=== PATIENT | male | born 1990 | race Two or more races ===

== ENCOUNTER 2022-01-31 23:24 | Emergency (ER) | payer SELFPAY | END 2022-02-01 00:49 | disposition left against medical advice (07) | LOC: ER 23:24 | DX: T14.90XA Injury, unspecified, initial encounter (principal); Z53.21 Procedure and treatment not carried out due to patient leaving prior to being seen by health care provider; Y04.8XXA Assault by other bodily force, initial encounter; Y93.89 Activity, other specified; Y92.89 Other specified places as the place of occurrence of the external cause; Y99.8 Other external cause status ==

== ENCOUNTER 2022-02-21 21:51 | Emergency (ER) | payer SELFPAY ==
[~2022-02-21] VITALS: Ht 172.7 cm; Wt 86.5 kg
[2022-02-21 22:43] VITALS: BP 155/89
[2022-02-21] MEDS ORDERED: SODIUM CHLORIDE 0.9% 1,000 ML IV ONE (23:00)
[2022-02-21 23:52] LABS: Basophils # (auto) 0 10 ^3/uL (0-0.2); Basophils % (auto) 0.7 % (0.0-2.0); Eosinophils # (auto) 0 10 ^3/uL (0-0.8); Eosinophils % (auto) 0.5 % (0.0-7.0); Hemoglobin 15.4 g/dL (13.5-17.5); Lymphocytes # (auto) 0.9 10 ^3/uL (0.4-5.4); Lymphocytes % (auto) 24.4 % (10.0-50.0); Mean Corpuscular Hemoglobin 30.6 pg (28.0-32.0); Mean Corpuscular Hgb Conc. 33.4 g/dL (32.0-36.0); Mean Corpuscular Volume 91.8 fL (80.0-100.0); Monocytes # (auto) 0.5 10 ^3/uL (0-1.3); Monocytes % (auto) 13.6 % (0.0-12.0); Neutrophils # (auto) 2.3 10 ^3/uL (1.6-8.6); Neutrophils % (auto) 60.8 % (37.0-80.0); Nucleated Red Blood Cells % 0.1 %; Red Blood Cells 5.02 10^6/uL (4.5-5.90); Red Cell Distribution Width 15.1 % (11.8-14.3); White Blood Cell 3.8 10^3/uL (4.4-10.8)
[2022-02-22 00:15] LABS: Albumin 4.3 g/dL (3.4-5.0); BUN/Creatinine Ratio 14.8; Calcium 8.5 mg/dL (8.5-10.1); Magnesium 2.3 mg/dL (1.6-2.6); Potassium 3.9 mmol/L (3.5-5.1)
[2022-02-22 00:18] LABS: Bilirubin, Total 0.5 mg/dL (0.2-1.0); Lactic Acid w/Reflex 3.8 mmol/L (0.4-2.0); Total Protein 8.3 g/dL (6.4-8.2)
[2022-02-22 00:44] LABS: Blood Alcohol 406.1 mg/dL (0-5)
[2022-02-22] MEDS ORDERED: ONDANSETRON ODT 4 MG TAB PO ONE (02:30)
[2022-02-22] MEDS ORDERED: THIAMINE HCL 100 MG TAB PO ONE (02:30)
[2022-02-22] MEDS ORDERED: MAGNESIUM OXIDE 400 MG TAB PO ONE (02:30)
[2022-02-22 02:46] LABS: Urine WBC None Seen /hpf (0 - 3)
[2022-02-22 02:57] LABS: Urine Bacteria NONE SEEN /hpf (None Seen); Urine Blood 1+ /uL (Negative); Urine Specific Gravity 1.013 (1.001-1.035)
[2022-02-22 03:06] LABS: Amphetamine Screen, Urine NEGATIVE (NEGATIVE); Barbiturate Scree,Urine NEGATIVE (NEGATIVE); Benzodiazephine Screen, Urine NEGATIVE (NEGATIVE); Cannabinoid Screen, Urine NEGATIVE (NEGATIVE); Cocaine Screen, Urine NEGATIVE (NEGATIVE); Opiate Scree,Urine NEGATIVE (NEGATIVE); Phencyclidine Screen, Urine NEGATIVE (NEGATIVE)
== END 2022-02-22 05:55 | disposition left against medical advice (07) ==
LOC: ER 21:53
DX: E86.0 Dehydration (principal); F10.10 Alcohol abuse, uncomplicated; R94.5 Abnormal results of liver function studies; Z53.29 Procedure and treatment not carried out because of patient's decision for other reasons
CPT/HCPCS: 36415; 74176; 80053; 80307; 80320; 81001; 82962; 83605; 83735; 85025

== ENCOUNTER 2022-04-07 13:48 | Inpatient (IN) | payer MEDICAID ==
[~2022-04-07] VITALS: Ht 167.6 cm; Wt 70.0 kg
[2022-04-07 14:14] VITALS: BP 127/79
[2022-04-07] MEDS ORDERED: THIAMINE 100mg/ml INJ (200mg/2ml VIAL) IV ONE (14:15)
[2022-04-07] MEDS ORDERED: SODIUM CHLORIDE 0.9% 1,000 ML IV ONE ×3 (14:15→19:30)
[2022-04-07 14:49] LABS: Hemoglobin 13.2 g/dL (13.5-17.5); Mean Corpuscular Hemoglobin 31.2 pg (28.0-32.0); Mean Corpuscular Hgb Conc. 32.9 g/dL (32.0-36.0); Mean Corpuscular Volume 94.9 fL (80.0-100.0); Red Blood Cells 4.22 10^6/uL (4.5-5.90); Red Cell Distribution Width 15.4 % (11.8-14.3); White Blood Cell 3.8 10^3/uL (4.4-10.8)
[2022-04-07 14:55] LABS: Band Neutrophils % (manual) 0; Basophils % (manual) 0 (0.0-2.0); Blast Cells 0; Eosinophils % (manual) 0 (0-7); Metamyelocytes % 0; Myelocytes % 0; Promyelocytes % 0; Reactive Lymphocytes 0
[2022-04-07 15:04] LABS: Calcium 7.2 mg/dL (8.5-10.1); Potassium 3.2 mmol/L (3.5-5.1)
[2022-04-07 15:12] LABS: Bilirubin, Total 0.1 mg/dL (0.2-1.0); Total Protein 6.1 g/dL (6.4-8.2)
[2022-04-07 15:19] LABS: BUN/Creatinine Ratio 6.7
[2022-04-07 15:23] LABS: Lymphocytes % (manual) 34 (10.0-50.0); Monocytes % (manual) 23 (0-12)
[2022-04-07] MEDS ORDERED: THIAMINE HCL 100 MG TAB PO ONE (19:30)
[2022-04-07] MEDS ORDERED: MORPHINE SULFATE INJ 2 MG/ml SYRG IV PRN (19:30)
[2022-04-07] MEDS ORDERED: MULTIPLE VITAMIN TAB PO ONE (19:30)
[2022-04-07] MEDS ORDERED: NITROGLYCERIN 0.4 MG SL TAB SL PRN (19:30)
[2022-04-07] MEDS ORDERED: FOLIC ACID 1 MG TAB PO ONE (19:30)
[2022-04-07] MEDS ORDERED: LORazepam 2MG/ML-1ML VIAL IV SCH (20:00)
[2022-04-08] MEDS ORDERED: THIAMINE HCL 100 MG TAB PO SCH (10:00)
[2022-04-08] MEDS ORDERED: MULTIPLE VITAMIN TAB PO SCH (10:00)
[2022-04-08] MEDS ORDERED: FOLIC ACID 1 MG TAB PO SCH (10:00)
== END 2022-04-07 20:02 | disposition left against medical advice (07) | DRG 72 ==
LOC: EDBD 13:48 → ER 13:48 → OVERFLOW 19:20
PROVIDERS: ADMIT Registered Nurse; ATTEND Registered Nurse
DX: G93.41 Metabolic encephalopathy (principal); F10.129 Alcohol abuse with intoxication, unspecified; Y90.9 Presence of alcohol in blood, level not specified
CPT/HCPCS: 36415; 70450; 80053; 80320; 83735; 85007; 85027; G0378